=== PATIENT | male | born 1990 | race Caucasian/White ===

== ENCOUNTER 2021-08-10 16:42 | Emergency (ER) | payer OTHER ==
[2021-08-10 16:50] VITALS: BP 119/61
--- NOTE | 2021-08-10 17:11 | ED Physician Documentation ---
PD HPI UPPER EXT INJURY - Stated complaint Stated Complaint: LT FINGER INJ - Chief complaint Chief Complaint: Laceration - History obtained from History obtained from: Patient - History of Present Illness Location: Left, Finger (index) Type of injury: Laceration Timing - duration: Hours (1) Timing - details: Abrupt onset Pain level max: 3 Pain level now: 1 Improved by: Rest Worsened by: Moving, Palpating Associated symptoms: No: Weakness, Numbness, Tingling - Additonal information Additional information: 31-year-old male, left-handed presents to the emergency department after accidentally hitting his left index finger with a chisel. Tetanus up-to-date. Nothing makes it better or worse. Review of Systems Constitutional: denies: Fever, Chills GI: denies: Vomiting Skin: denies: Rash PD PAST MEDICAL HISTORY - Past Medical History Past Medical History: No - Past Surgical History Past Surgical History: No - Allergies Allergies/Adverse Reactions: Allergies Allergy/AdvReac Type Severity Reaction Status Date / Time No Known Drug Allergies Allergy Verified 08/10/21 16:50 - Living Situation Living Situation: reports: With family Living Arrangement: reports: At home - Family History Family history: reports: Non contributory - Immunizations Immunizations are current?: Yes Immunizations: TDAP current <10years PD ED PE NORMAL - Vitals Vital signs reviewed: Yes - General General: Alert and oriented X 3, No acute distress - Neuro Neuro: Alert and oriented X 3 - Free text exam Free text exam: Small flap laceration to the tip of the left index finger. No bleeding. Neurovascular intact. All tendons intact. No nail injury Results - Vitals Vitals: Vital Signs - 24 hr 08/10/21 16:47 Temperature 36.9 C Heart Rate 53 L Respiratory 16 Rate Blood Pressure 119/61 O2 Saturation 99 Oxygen O2 Source Room air Procedures - Laceration (location) Left index finger Pad of finger Length in cm: 1 Wound type: Linear, Superficial, Clean Neurovascular status: Sensory intact, Motor intact, Vascular intact Tendon involvement: Tendon intact Wound preparation: Irrigated copiously NS Skin layer closure: Dermabond Other: Patient tolerated well, No complications, Neurovascular intact, Dressing applied, Tetanus UTD PD MEDICAL DECISION MAKING - ED course Complexity details: considered differential, d/w patient ED course: Dermabond was used to help keep the wound closed. No indication for sutures. Wound was irrigated with saline. Placed in a small finger splint for comfort. Warnings of infection and instructions on wound care given at bedside. Patient counseled regarding signs and symptoms for which I believe and urgent re- evaluation would be necessary. Patient with good understanding of and agreement to plan and is comfortable going home at this time This document was made in part using voice recognition software. While efforts are made to proofread this document, sound alike and grammatical errors may occur. Departure - Departure Disposition: 01 Home, Self Care Clinical Impression: Laceration Condition: Good Instructions: ED Laceration Ext Skin Glue Follow-Up: JOSE TANG, DO [Primary Care Provider] - As Needed Comments: Keep the wound clean. Return if you worsen. The glue will fall off on its own. You can use the splint for the next few days to help protect the area. Return if you notice redness, swelling or drainage from the wound. Discharge Date/Time: 08/10/21 17:20
== END 2021-08-10 17:20 | disposition home or self-care (01) ==
LOC: ED 16:42
DX: S61.211A Laceration without foreign body of left index finger without damage to nail, initial encounter (principal); W27.0XXA Contact with workbench tool, initial encounter; Y93.89 Activity, other specified
CPT/HCPCS: 12001; 99281